=== PATIENT | female | born 1975 | race Caucasian/White ===

== ENCOUNTER 2020-10-06 08:26 | Outpatient (CLI) | payer BC | END 2020-10-06 08:27 | disposition home or self-care (01) | LOC: CSHMAMMO 08:26 | PROVIDERS: ATTEND Family Medicine | DX: Z12.31 Encounter for screening mammogram for malignant neoplasm of breast (principal) | CPT/HCPCS: 77063; 77067 ==

== ENCOUNTER 2022-11-27 08:53 | Outpatient (CLI) | payer OTHER | END 2022-11-27 08:54 | disposition home or self-care (01) | LOC: CSHMAMMO 08:53 | PROVIDERS: ATTEND Family Medicine | DX: R92.8 Other abnormal and inconclusive findings on diagnostic imaging of breast (principal); Z91.89 Other specified personal risk factors, not elsewhere classified; Z98.890 Other specified postprocedural states; Z98.82 Breast implant status | CPT/HCPCS: 77066; G0279 ==

== ENCOUNTER 2025-01-07 14:23 | Outpatient (CLI) | payer BC | END 2025-01-07 14:24 | disposition home or self-care (01) | LOC: CSHMAMMO 14:23 | PROVIDERS: ATTEND Family Medicine | DX: N64.4 Mastodynia (principal); Z98.82 Breast implant status | CPT/HCPCS: 77066; G0279 ==